=== PATIENT | female | born 1980 | race African-American/Black ===

== ENCOUNTER 2017-04-09 17:24 | Emergency (ER) | payer SELFPAY ==
[~2017-04-09] VITALS: Ht 172.7 cm; Wt 79.4 kg
[~2017-04-09 17:24] MED LIST: ALBU8.5H6; FERR325C
[2017-04-09 17:28] VITALS: BP 126/77
[2017-04-09] MEDS ORDERED: LIDOCAINE 1% / SOD BICARB 8.4% 20 ML VIAL. IJ ONE (18:15)
[2017-04-09] MEDS ORDERED: DIPHTH,PERTUSS(ACELL),TET TOX 0.5 ML DISP.SYRIN. VAX IM ONE (18:15)
--- NOTE | 2017-04-09 18:54 | PHYS DOC ---
Past Medical History Past Medical History: Anemia, Asthma, Fibromyalgia, Other Additional Past Medical Histor: DRUG ABUSE, HX OF PROSTITUTION Past Surgical History: No Surgical History Alcohol Use: None Drug Use: None, Other Social History Narrative: former Adult General Chief Complaint Chief Complaint: OTHER COMPLAINTS HPI HPI Patient is a 37 year old female who presents with a ring stuck in the lower lip. She states she was laughing hard when her lip ring got pulled by her teeth and stuck in her lower lip. Review of Systems Review of Systems Constitutional: Denies fever or chills [] Musculoskeletal: Denies back pain or joint pain [] Integument: ring in lower lip. Neurologic: Denies headache, focal weakness or sensory changes [] All other systems were reviewed and found to be within normal limits, except as documented in this note. Current Medications Current Medications Current Medications Medications (Trade) Dose Ordered Sig/Reshma Start Time Stop Time Status Last Admin Dose Admin Diphtheria/ Tetanus/Acell Pertussis (Boostrix) 0.5 ml ONCE ONCE 04/09/17 18:15 04/09/17 18:16 DC 04/09/17 18:40 0.5 ML Lidocaine/Sodium Bicarbonate (Buffered Lidocaine 1%) 20 ml 1X ONCE 04/09/17 18:15 04/09/17 18:16 DC 04/09/17 18:40 20 ML Allergies Allergies Allergies Coded Allergies Type Severity Reaction Last Updated Verified codeine Allergy Unknown 08/01/13 Yes Physical Exam Physical Exam Constitutional: Well developed, well nourished, no acute distress, non-toxic appearance. [] Skin: Warm, dry, lower lip with a ring stuck in the lip. Back: No tenderness, no CVA tenderness. [] Extremities: No tenderness, no cyanosis, no clubbing, ROM intact, no edema. [] Neurologic: Alert and oriented X 3, normal motor function, normal sensory function, no focal deficits noted. [] Psychologic: Affect normal, judgement normal, mood normal. [] Current Patient Data Vital Signs Vital Signs Date Time Temp Pulse Resp B/P (MAP) Pulse Ox O2 Delivery O2 Flow Rate FiO2 04/09/17 17:28 98.7 95 18 97 Room Air 98.7 EKG EKG [] Radiology/Procedures Radiology/Procedures Indication: ring in the lower lip Procedure: The area of the foreign body was lower lip. Local anesthesia over the foreign body site was 1% buffered lidocaine, the ring was pulled though the lip with forceps successfully. The patient tolerated the procedure well Complications:none Course & Med Decision Making Course & Med Decision Making Pertinent Labs and Imaging studies reviewed. (See chart for details) [] Dragon Disclaimer Dragon Disclaimer This electronic medical record was generated, in whole or in part, using a voice recognition dictation system. Departure Departure Impression: Primary Impression: Foreign body in lip Disposition: HOME, SELF-CARE Condition: STABLE Referrals: UNKNOWN PCP NAME (PCP) follow up with your doctor in one week Patient Instructions: Foreign Body-Brief Additional Instructions: We removed a ring from the lower lip. The pierced area might close. If it closes you can re-repierce the lip after the area heals up. Keep the area clean and dry. Monitor the area for signs of infection including increased redness to the area, warmth to the area, yellow drainage from the area and return to the ED or see a doctor if they occur. Problem Qualifiers Primary Impression: Foreign body in lip Encounter type: initial encounter Qualified Codes: S00.551A - Superficial foreign body of lip, initial encounter GREGORY CHAVEZ INFORMATION TECH Apr 09, 2017 18:54
== END 2017-04-09 19:29 | disposition home or self-care (01) ==
LOC: ER 17:24
DX: S00.551A Superficial foreign body of lip, initial encounter (principal); J45.909 Unspecified asthma, uncomplicated; M79.7 Fibromyalgia; Z86.2 Personal history of diseases of the blood and blood-forming organs and certain disorders involving the immune mechanism; Z88.6 Allergy status to analgesic agent; X58.XXXA Exposure to other specified factors, initial encounter; Y93.89 Activity, other specified; Y92.89 Other specified places as the place of occurrence of the external cause; Y99.8 Other external cause status
CPT/HCPCS: 90471; 90715; 96372; 99284-25

== ENCOUNTER 2017-04-27 09:00 | Emergency (ER) | payer SELFPAY ==
[~2017-04-27] VITALS: Ht 172.7 cm; Wt 79.4 kg
[2017-04-27 09:13] VITALS: BP 123/71
[2017-04-27] MEDS ORDERED: ONDANSETRON ODT 4 MG TAB.RAPDIS. PO ONE (09:15)
[2017-04-27] MEDS ORDERED: CYCLOBENZAPRINE 10 MG TABLET. PO ONE (09:15)
[2017-04-27] MEDS ORDERED: ACETAMINOPHEN 500 MG TABLET PO ONE (09:15)
--- NOTE | 2017-04-27 09:18 | PHYS DOC ---
Past Medical History Past Medical History: Anemia, Asthma, Fibromyalgia, Other Additional Past Medical Histor: DRUG ABUSE, HX OF PROSTITUTION Past Surgical History: No Surgical History Alcohol Use: None Drug Use: None, Other Adult General Chief Complaint Chief Complaint: NAUSEA/VOMITING/DIARRHA HPI HPI Patient is a 37 year old female with history of asthma, anemia, fibromyalgia, who presents today complaining of nausea and vomiting that began yesterday. Patient denies any fever. Patient states other family members at home have similar symptoms. Patient denies any chance she is . Denies abdominal pain. Review of Systems Review of Systems Constitutional: Denies fever or chills [] Eyes: Denies change in visual acuity, redness, or eye pain [] HENT: Denies nasal congestion or sore throat [] Respiratory: Denies cough or shortness of breath [] Cardiovascular: No additional information not addressed in HPI [] GI: Denies abdominal pain, reports nausea and vomiting. Bloody stools or diarrhea [] : Denies dysuria or hematuria [] Musculoskeletal: Denies back pain or joint pain [] Integument: Denies rash or skin lesions [] Neurologic: Denies headache, focal weakness or sensory changes [] All other systems were reviewed and found to be within normal limits, except as documented in this note. Current Medications Current Medications Current Medications Medications (Trade) Dose Ordered Sig/Reshma Start Time Stop Time Status Last Admin Dose Admin Acetaminophen (Tylenol) 500 mg 1X ONCE 04/27/17 09:15 04/27/17 09:16 DC 04/27/17 09:27 500 MG Cyclobenzaprine HCl (Flexeril) 10 mg 1X ONCE 04/27/17 09:15 04/27/17 09:16 DC 04/27/17 09:27 10 MG Ondansetron HCl (Zofran Odt) 4 mg 1X ONCE 04/27/17 09:15 04/27/17 09:16 DC 04/27/17 09:27 4 MG Allergies Allergies Allergies Coded Allergies Type Severity Reaction Last Updated Verified codeine Allergy Unknown 08/01/13 Yes Physical Exam Physical Exam Constitutional: Well developed, well nourished, no acute distress, non-toxic appearance. [] HENT: Normocephalic, atraumatic, bilateral external ears normal, oropharynx moist, no oral exudates, nose normal. [] Eyes: PERRLA, EOMI, conjunctiva normal, no discharge. [] Neck: Normal range of motion, no tenderness, supple, no stridor. [] Cardiovascular:Heart rate regular rhythm, no murmur [] Lungs & Thorax: Bilateral breath sounds clear to auscultation [] Abdomen: Bowel sounds normal, soft, no tenderness, no masses, no pulsatile masses. [] Skin: Warm, dry, no erythema, no rash. [] Back: No tenderness, no CVA tenderness. [] Extremities: No tenderness, no cyanosis, no clubbing, ROM intact, no edema. [] Neurologic: Alert and oriented X 3, normal motor function, normal sensory function, no focal deficits noted. [] Psychologic: Affect normal, judgement normal, mood normal. [] Current Patient Data Vital Signs Vital Signs Date Time Temp Pulse Resp B/P (MAP) Pulse Ox O2 Delivery O2 Flow Rate FiO2 04/27/17 09:13 97.9 101 16 99 Room Air 97.9 Lab Values Laboratory Tests Test 04/27/17 09:08 04/27/17 09:10 Urine Collection Type Void Urine Color Yellow Urine Clarity Cloudy Urine pH 7.0 Urine Specific [place] >=1.030 Urine Protein Negative mg/dL (NEG-TRACE) Urine Glucose (UA) Negative mg/dL (NEG) Urine Ketones (Stick) Negative mg/dL (NEG) Urine Blood Negative (NEG) Urine Nitrite Negative (NEG) Urine Bilirubin Negative (NEG) Urine Urobilinogen Dipstick 1.0 mg/dL (0.2 mg/dL) Urine Leukocyte Esterase Moderate (NEG) Urine RBC Occ /HPF (0-2) Urine WBC 5-10 /HPF (0-4) Urine Squamous Epithelial Cells Mod /LPF Urine Bacteria Mod /HPF (0-FEW) POC Urine HCG, Qualitative Hcg negative (Negative) EKG EKG [] Radiology/Procedures Radiology/Procedures [] Course & Med Decision Making Course & Med Decision Making Pertinent Labs and Imaging studies reviewed. (See chart for details) This is a 37-year-old female patient presented to the ED today with symptoms consistent of viral illness including nausea and vomiting. Several family members at home have similar symptoms. Negative urine hCG. Patient was given Zofran, she is tolerating by mouth liquids. She states she is feeling better and would like to be discharged. Discharged with Zofran. Instructed to push fluids and maintain good hand hygiene. Follow-up with her own doctor in the next 7 days. Instructed to return to the ED at any point symptoms worsen. Patient refused to wait for her UA results. Ron Disclaimer Ron Disclaimer This electronic medical record was generated, in whole or in part, using a voice recognition dictation system. Departure Departure Impression: Primary Impression: Nausea and vomiting Disposition: HOME, SELF-CARE Condition: STABLE Referrals: UNKNOWN PCP NAME (PCP) follow up with your doctor in 1 week Patient Instructions: Nausea and Vomiting, [id number] Additional Instructions: You were seen with symptoms consistent of viral illness including nausea and vomiting. Take Zofran prescribed as needed for nausea or vomiting. Push fluids. Maintain good hand hygiene. Follow-up with your own doctor in the next 1 week. Come back to the ED if symptoms worsen. Scripts Ondansetron (ZOFRAN ODT) 4 Mg Tab.rapdis 1 TAB SL Q8HRS, #15 TAB Prov: GREGORY CHAVEZ APRN 04/27/17 Problem Qualifiers Primary Impression: Nausea and vomiting Vomiting type: unspecified Vomiting Intractability: non-intractable Qualified Codes: R11.2 - Nausea with vomiting, unspecified GREGORY CHAVEZ APRN Apr 27, 2017 09:18
[2017-04-27 09:36] LABS: BILIRUBIN,URINE NEGATIVE (NEG); GLUCOSE,URINE NEGATIVE (NEG); NITRITE,URINE NEGATIVE (NEG); PROTEIN,URINE NEGATIVE (NEG-TRACE)
[2017-04-27 09:51] LABS: BACTERIA,URINE MOD /HPF (0-FEW); RBC,URINE OCC /HPF (0-2); SQUAMOUS EPITHELIAL CELL,UR MOD /LPF
[2017-04-27] MEDS ORDERED: ONDA4TAB10 SL (09:55)
== END 2017-04-27 10:10 | disposition home or self-care (01) ==
LOC: ER 09:00
DX: R11.2 Nausea with vomiting, unspecified (principal); J45.909 Unspecified asthma, uncomplicated; M79.7 Fibromyalgia; Z88.5 Allergy status to narcotic agent
CPT/HCPCS: 81001; 81025; 99284; Q0162

== ENCOUNTER 2017-07-19 14:55 | Emergency (ER) | payer SELFPAY | END 2017-07-19 16:04 | disposition home or self-care (01) | LOC: ER 16:04 | DX: H69.83 Other specified disorders of Eustachian tube, bilateral (principal); J45.909 Unspecified asthma, uncomplicated; Z88.5 Allergy status to narcotic agent | CPT/HCPCS: 99281 ==

== ENCOUNTER 2017-11-05 00:54 | Emergency (ER) | payer SELFPAY ==
[2017-11-05] MEDS ORDERED: BACITRACIN/POLYMYXIN B TOPICAL OINT 15GM TUBE. TP (01:30)
[2017-11-05] MEDS: IBUPROFEN 800 MG TABLET. PO (01:35)
[2017-11-05] MEDS: HYDROcodone/APAP 5/325MG 1 TAB TABLET PO (01:36)
[2017-11-05] MEDS: DIPHTH,PERTUSS(ACELL),TET TOX 0.5 ML DISP.SYRIN. VAX IM (01:37)
[2017-11-05] MEDS ORDERED: NEOMY/BACITR/POLYMYXIN OINT PACKET. TP (01:45)
[2017-11-05] MEDS: NEOMY/BACITR/POLYMYXIN OINT PACKET. TP (01:47)
== END 2017-11-05 01:55 | disposition home or self-care (01) ==
LOC: ER 00:54
DX: T23.221A Burn of second degree of single right finger (nail) except thumb, initial encounter (principal); T23.151A Burn of first degree of right palm, initial encounter; J45.909 Unspecified asthma, uncomplicated; Z88.5 Allergy status to narcotic agent; Y92.89 Other specified places as the place of occurrence of the external cause
CPT/HCPCS: 90471; 90715; 99284

== ENCOUNTER 2019-07-16 13:17 | Emergency (ER) | payer OTHER ==
[~2019-07-16] VITALS: Ht 172.7 cm; Wt 63.0 kg
[2019-07-16 13:17] VITALS: BP 97/65
[~2019-07-16 13:17] MED LIST changes: +HYDR-3164 PO; +IBUP-1060 PO; +ONDA4TAB10 SL
[2019-07-16 14:13] LABS: BASO % 0 % (0-3); CREATININE 0.9 mg/dL (0.6-1.0); EOS # 0.1 x10^3/uL (0.0-0.7); EOS % 2 % (0-3); GFR 84.3; HEMATOCRIT 43.7 % (36.0-47.0); HEMOGLOBIN 14.7 g/dL (12.0-15.5); LYMPH # 2.2 x10^3/uL (1.0-4.8); LYMPH % 33 % (24-48); MEAN CORPUSCULAR HEMOGLOBIN 31 pg (25-35); MEAN CORPUSCULAR HGB CONC 34 g/dL (31-37); MEAN CORPUSCULAR VOLUME 94 fL (79-100); MONO # 0.5 x10^3/uL (0.0-1.1); MONO % 7 % (0-9); NEUT # 3.8 x10^3/uL (1.8-7.7); NEUT % 57 % (31-73); PLATELET COUNT 245 x10^3/uL (140-400); POTASSIUM 3.6 mmol/L (3.5-5.1); RED BLOOD COUNT 4.67 x10^6/uL (3.50-5.40); RED CELL DISTRIBUTION WIDTH 12.9 % (11.5-14.5); WHITE BLOOD COUNT 6.7 x10^3/uL (4.0-11.0)
[2019-07-16 14:20] LABS: ALBUMIN 3.9 g/dL (3.4-5.0); ALBUMIN/GLOBULIN RATIO 1.5 (1.0-1.7); TOTAL BILIRUBIN 1.1 mg/dL (0.2-1.0); TOTAL PROTEIN 6.5 g/dL (6.4-8.2)
[2019-07-16 14:21] LABS: BILIRUBIN,URINE NEGATIVE (NEG); CLARITY,URINE CLEAR; COLOR,URINE YELLOW; NITRITE,URINE NEGATIVE (NEG); PROTEIN,URINE NEGATIVE (NEG-TRACE)
[2019-07-16 14:27] LABS: BARBITURATES NEG (NEG); BENZODIAZEPINES NEG (NEG); CANNABINOIDS POS (NEG); COCAINE NEG (NEG); HYALINE CASTS, URINE OCCASIONAL /HPF; METHADONE NEG (NEG); OPIATES NEG (NEG); PHENCYCLIDINE POS (NEG); SQUAMOUS EPITHELIAL CELL,UR MANY /LPF
[2019-07-16 14:28] LABS: BACTERIA,URINE FEW /HPF (0-FEW)
[2019-07-16 14:30] LABS: RBC,URINE 20-40 /HPF (0-2); YEAST,URINE PRESENT /HPF
[2019-07-16 14:34] LABS: AMPHETAMINE/METHAMPHETAMINE NEG (NEG)
--- NOTE | 2019-07-16 14:49 | PHYS DOC ---
Past Medical History Past Medical History: Asthma, Fibromyalgia Additional Past Medical Histor: DRUG ABUSE Past Surgical History: No Surgical History Smoking Status: Current Every Day Smoker Alcohol Use: None Drug Use: None, Other Social History Narrative: PT STATES SHE USES MARIJUANA AND PCP EVERY OTHER DAY Adult General Chief Complaint Chief Complaint: PELVIC PAIN HPI HPI Patient is a 39-year-old female who presents with a variety of complaints inc luding pain all over lower abdominal pain and generalized weakness. She denies any fever chills or sweats. She admits to dysuria. She does admit to having a thick white vaginal discharge but denies any dyspareunia. She denies any vaginal bleeding. She also states that she uses marijuana and PCP and would like help detoxing from these substances.[] Review of Systems Review of Systems Constitutional: Denies fever or chills [] Eyes: Denies change in visual acuity, redness, or eye pain [] HENT: Denies nasal congestion or sore throat [] Respiratory: Denies cough or shortness of breath [] Cardiovascular: No additional information not addressed in HPI [] GI: Denies abdominal pain, nausea, vomiting, bloody stools or diarrhea [] : Per history of present illness[] Musculoskeletal: Denies back pain or joint pain [] Integument: Denies rash or skin lesions [] Neurologic: Denies headache, focal weakness or sensory changes [] Endocrine: Denies polyuria or polydipsia [] All other systems were reviewed and found to be within normal limits, except as documented in this note. Current Medications Current Medications Current Medications Medications (Trade) Dose Ordered Sig/[facility] Start Time Stop Time Status Last Admin Dose Admin Levofloxacin (Levaquin) 500 mg 1X ONCE 07/16/19 15:00 07/16/19 15:01 MT Allergies Allergies Allergies Coded Allergies Type Severity Reaction Last Updated Verified codeine Allergy Unknown 08/01/13 Yes Physical Exam Physical Exam Constitutional: Well developed, well nourished, no acute distress, non-toxic ap pearance. [] HENT: Normocephalic, atraumatic, bilateral external ears normal, oropharynx moist, no oral exudates, nose normal. [] Eyes: PERRLA, EOMI, conjunctiva normal, no discharge. [] Neck: Normal range of motion, no tenderness, supple, no stridor. [] Cardiovascular:Heart rate regular rhythm, no murmur [] Lungs & Thorax: Bilateral breath sounds clear to auscultation [] Abdomen: Bowel sounds normal, soft, no tenderness, no masses, no pulsatile masses. [] Skin: Warm, dry, no erythema, no rash. [] Back: No tenderness, no CVA tenderness. [] Extremities: No tenderness, no cyanosis, no clubbing, ROM intact, no edema. [] Neurologic: Alert and oriented X 3, normal motor function, normal sensory function, no focal deficits noted. [] Psychologic: Depressed affect[] Current Patient Data Vital Signs Vital Signs Date Time Temp Pulse Resp B/P (MAP) Pulse Ox O2 Delivery O2 Flow Rate FiO2 07/16/19 13:17 99.7 79 16 97/65 (76) 97 Room Air 99.7 Lab Values Laboratory Tests Test 07/16/19 13:51 07/16/19 14:00 White Blood Count 6.7 x10^3/uL (4.0-11.0) Red Blood Count 4.67 x10^6/uL (3.50-5.40) Hemoglobin 14.7 g/dL (12.0-15.5) Hematocrit 43.7 % (36.0-47.0) Mean Corpuscular Volume 94 fL (79-100) Mean Corpuscular Hemoglobin 31 pg (25-35) Mean Corpuscular Hemoglobin Concent 34 g/dL (31-37) Red Cell Distribution Width 12.9 % (11.5-14.5) Platelet Count 245 x10^3/uL (140-400) Neutrophils (%) (Auto) 57 % (31-73) Lymphocytes (%) (Auto) 33 % (24-48) Monocytes (%) (Auto) 7 % (0-9) Eosinophils (%) (Auto) 2 % (0-3) Basophils (%) (Auto) 0 % (0-3) Neutrophils # (Auto) 3.8 x10^3/uL (1.8-7.7) Lymphocytes # (Auto) 2.2 x10^3/uL (1.0-4.8) Monocytes # (Auto) 0.5 x10^3/uL (0.0-1.1) Eosinophils # (Auto) 0.1 x10^3/uL (0.0-0.7) Basophils # (Auto) 0.0 x10^3/uL (0.0-0.2) Sodium Level 142 mmol/L (136-145) Potassium Level 3.6 mmol/L (3.5-5.1) Chloride Level 107 mmol/L (98-107) Carbon Dioxide Level 31 mmol/L (21-32) Anion Gap 4 (6-14) L Blood Urea Nitrogen 10 mg/dL (7-20) Creatinine 0.9 mg/dL (0.6-1.0) Estimated GFR (Cockcroft-Gault) 84.3 BUN/Creatinine Ratio 11 (6-20) Glucose Level 113 mg/dL (70-99) H Calcium Level 9.0 mg/dL (8.5-10.1) Total Bilirubin 1.1 mg/dL (0.2-1.0) H Aspartate Amino Transferase (AST) 13 U/L (15-37) L Alanine Aminotransferase (ALT) 20 U/L (14-59) Alkaline Phosphatase 44 U/L (46-116) L Total Protein 6.5 g/dL (6.4-8.2) Albumin 3.9 g/dL (3.4-5.0) Albumin/Globulin Ratio 1.5 (1.0-1.7) Ethyl Alcohol Level < 10 mg/dL (0-10) Urine Collection Type Unknown Urine Color Yellow Urine Clarity Clear Urine pH 8.0 (<5.0-8.0) Urine Specific [place] 1.015 (1.000-1.030) Urine Protein Negative mg/dL (NEG-TRACE) Urine Glucose (UA) Negative mg/dL (NEG) Urine Ketones (Stick) Negative mg/dL (NEG) Urine Blood Large (NEG) Urine Nitrite Negative (NEG) Urine Bilirubin Negative (NEG) Urine Urobilinogen Dipstick 2.0 mg/dL (0.2 mg/dL) Urine Leukocyte Esterase Small (NEG) Urine RBC 20-40 /HPF (0-2) Urine WBC 11-20 /HPF (0-4) Urine Squamous Epithelial Cells Many /LPF Urine Bacteria Few /HPF (0-FEW) Urine Hyaline Casts Occasional /HPF Urine Mucus Mod /LPF Urine Yeast Present /HPF Urine Opiates Screen Neg (NEG) Urine Methadone Screen Neg (NEG) Urine Barbiturates Neg (NEG) Urine Phencyclidine Screen Pos (NEG) Urine Amphetamine/Methamphetamine Neg (NEG) Urine Benzodiazepines Screen Neg (NEG) Urine Cocaine Screen Neg (NEG) Urine Cannabinoids Screen Pos (NEG) Urine Ethyl Alcohol Neg (NEG) Laboratory Tests 07/16/19 13:51 Laboratory Tests 07/16/19 13:51 EKG EKG [] Radiology/Procedures Radiology/Procedures [] Course & Med Decision Making Course & Med Decision Making Pertinent Labs and Imaging studies reviewed. (See chart for details) [ED course: Evaluation reveals a healthy-appearing 39-year-old female who admits to PCP and marijuana. She is been medically screened and subsequently cleared for the adult detox unit. We'll have psychiatric assessment team come and check her out.] Dragon Disclaimer Dragon Disclaimer This electronic medical record was generated, in whole or in part, using a voice recognition dictation system. Departure Departure Impression: Primary Impression: Urinary tract infection Additional Impression: Polysubstance abuse Disposition: HOME, SELF-CARE Condition: STABLE Referrals: UNKNOWN PCP NAME (PCP) Patient Instructions: Substance Abuse-Brief, Urinary Tract Infection Scripts Levofloxacin (LEVAQUIN) 500 Mg Tablet 1 TAB PO DAILY for urinary tract infection, #4 TAB start tomorrow morning Prov: DEVONTE SORIANO DO 07/16/19 Problem Qualifiers Primary Impression: Urinary tract infection Urinary tract infection type: acute cystitis Hematuria presence: without hematuria Qualified Codes: N30.00 - Acute cystitis without hematuria DEVONTE SORIANO DO Jul 16, 2019 14:49
[2019-07-16] MEDS ORDERED: LEVO500T59 PO (15:05)
== END 2019-07-16 15:22 | disposition home or self-care (01) ==
LOC: ER 13:17
DX: N30.00 Acute cystitis without hematuria (principal); F19.10 Other psychoactive substance abuse, uncomplicated; J45.909 Unspecified asthma, uncomplicated; F17.200 Nicotine dependence, unspecified, uncomplicated; Z88.5 Allergy status to narcotic agent
CPT/HCPCS: 80053; 80307; 81001; 81025; 85025; 87086; 87491; 87591; 99283; G0480

== ENCOUNTER 2019-08-06 04:03 | Emergency (ER) | payer OTHER ==
[~2019-08-06] VITALS: Ht 174 cm; Wt 72.0 kg
[~2019-08-06 04:03] MED LIST changes: +LEVO500T59 PO
[2019-08-06 04:23] VITALS: BP 139/87
--- NOTE | 2019-08-06 04:38 | PHYS DOC ---
Past Medical History Past Medical History: Asthma, Depression, Pneumonia Additional Past Medical Histor: DRUG ABUSE Past Surgical History: No Surgical History Smoking Status: Current Every Day Smoker Additional Information: 5-6 CIGARETTES/DAY Alcohol Use: Heavy Drug Use: None, Other Adult General Chief Complaint Chief Complaint: LOWER BACK PAIN OR INJURY [facility] HPI Patient is a 39 year old female with history of asthma, depression, pneumonia, drug abuse, chronic back pain who presents via EMS with complaint of back pain. Patient states she has had back pain forever but tonight her back pain is getting worse without any injury. Patient states the pain is a constant pain and rated her pain is severe pain without focal neuro deficit, fever and chills, nausea and vomiting, urinary symptoms, abdominal pain. Patient is a poor historian and refused to answer to the question or stated "I don't know" to the most of the question. Patient admitted to his PCP and marijuana and denies using methamphetamine. Review of Systems Review of Systems Constitutional: Denies fever or chills [] Eyes: Denies change in visual acuity, redness, or eye pain [] HENT: Denies nasal congestion or sore throat [] Respiratory: Denies cough or shortness of breath [] Cardiovascular: No additional information not addressed in HPI [] GI: Denies abdominal pain, nausea, vomiting, bloody stools or diarrhea [] : Denies dysuria or hematuria [] Musculoskeletal: Reports back pain Integument: Denies rash or skin lesions [] Neurologic: Denies headache, focal weakness or sensory changes [] Endocrine: Denies polyuria or polydipsia [] All other systems were reviewed and found to be within normal limits, except as documented in this note. Current Medications Current Medications Current Medications Medications (Trade) Dose Ordered Sig/Reshma Start Time Stop Time Status Last Admin Dose Admin Cyclobenzaprine HCl (Flexeril) 10 mg 1X ONCE 08/06/19 04:45 08/06/19 04:47 DC Naproxen (Naprosyn) 500 mg 1X ONCE 08/06/19 04:45 08/06/19 04:47 DC Allergies Allergies Allergies Coded Allergies Type Severity Reaction Last Updated Verified codeine Allergy Unknown 08/01/13 Yes Physical Exam Physical Exam Constitutional: Well nourished, mild distress, non-toxic appearance. [] HENT: Normocephalic, atraumatic. Eyes: PERRLA, EOMI, conjunctiva normal, no discharge. [] Neck: Normal range of motion, no tenderness, supple, no stridor. [] Cardiovascular:Heart rate regular rhythm, no murmur [] Lungs & Thorax: Bilateral breath sounds clear to auscultation [] Abdomen: Bowel sounds normal, soft, no tenderness, no masses, no pulsatile masses. [] Skin: Warm, dry, no erythema, no rash. [] Back: No midline tenderness, normal range of motion, no CVA tenderness. [] Extremities: No tenderness, no cyanosis, no clubbing, ROM intact, no edema. [] Neurologic: Alert and oriented X 3, no focal deficits noted. [] Psychologic: Affect anxious,mood normal. 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 Patient had unremarkable physical exam. Patient asking for hydrocodone for her pain and refused to take Flexeril and Naprosyn and refused to take discharge prescription. Patient had history of PCP and marijuana abuse and looked under influence of drug. Dragon Disclaimer Dragon Disclaimer This electronic medical record was generated, in whole or in part, using a voice recognition dictation system. Departure Departure Impression: Primary Impression: Acute exacerbation of chronic low back pain Additional Impression: Substance abuse Disposition: 01 HOME, SELF-CARE Condition: STABLE Referrals: UNKNOWN PCP NAME (PCP) Patient Instructions: Chronic Back Pain Additional Instructions: Apply ice on your back Follow-up with your primary care physician in 3-5 days Return to ER if not getting better Thank you for visiting [facility]. We appreciate you trusting us with your care. If any additional problems come up don't hesitate to return to visit us. Please follow up with your primary care provider so they can plan additional care if needed and know about the problem that you had. If symptoms worsen come back to the Emergency Department. Any concerning symptoms that start such as chest pain, shortness of air, weakness or numbness on one side of the body, running high fevers or any other concerning symptoms return to the ER. Scripts Naproxen (NAPROSYN) 500 Mg Tablet 1 TAB PO BID for pain, #14 TAB Prov: MARCUS BENITEZ MD 08/06/19 Cyclobenzaprine Hcl (CYCLOBENZAPRINE HCL) 10 Mg Tablet 1 TAB PO TID, #21 TAB Prov: MARCUS BENITEZ MD 08/06/19 Problem Qualifiers MARCUS BENITEZ MD Aug 06, 2019 04:37
[2019-08-06] MEDS ORDERED: CYCL10TA2 PO (04:45)
[2019-08-06] MEDS ORDERED: NAPROXEN 500 MG TABLET PO ONE (04:45)
[2019-08-06] MEDS ORDERED: CYCLOBENZAPRINE 10 MG TABLET. PO ONE (04:45)
[2019-08-06] MEDS ORDERED: NAPR-683 PO (04:45)
== END 2019-08-06 05:01 | disposition home or self-care (01) ==
LOC: ER 04:03
DX: G89.29 Other chronic pain (principal); M54.5 Low back pain; F16.10 Hallucinogen abuse, uncomplicated; F12.10 Cannabis abuse, uncomplicated; J45.909 Unspecified asthma, uncomplicated; F17.210 Nicotine dependence, cigarettes, uncomplicated; Z88.5 Allergy status to narcotic agent
CPT/HCPCS: 99283

== ENCOUNTER 2020-05-21 03:56 | Emergency (ER) | payer OTHER ==
[~2020-05-21] VITALS: Ht 180.3 cm; Wt 61.4 kg
[~2020-05-21 03:56] MED LIST changes: +CYCL10TA2 PO; +NAPR-683 PO
[2020-05-21 04:10] VITALS: BP 166/90
--- NOTE | 2020-05-21 04:41 | PHYS DOC ---
Past Medical History Past Medical History: Asthma, Depression, Pneumonia Additional Past Medical Histor: DRUG ABUSE Past Surgical History: No Surgical History Smoking Status: Current Every Day Smoker Alcohol Use: Heavy Drug Use: None, Other General Adult EDM: Chief Complaint: BACK PAIN OR INJURY HPI: HPI: Patient is a 40 year old female who presents with diffuse body pain. She has a history of fibromyalgia and cannot locate where her pain is the worst. She denies any head or neck trauma. She appears to be under the influence of drugs/alcohol, she was here in August 2019 for similar complaints and tested positive for PCP and marijuana at that time. She denies substance use at this time but refused to give a urine sample. She has no other complaints at this time. Review of Systems: Review of Systems: Constitutional: Denies fever or chills Eyes: Denies redness or eye pain HENT: Denies nasal congestion or sore throat Respiratory: Denies cough or shortness of breath Cardiovascular: Denies chest pain or palpitations GI: Denies abdominal pain, nausea, or vomiting : Denies dysuria or hematuria Musculoskeletal: States she has full body pain from chronic fibromyalgia Integument: Denies rash or skin lesions Neurologic: Denies headache, focal weakness or sensory changes Complete systems were reviewed and found to be within normal limits, except as documented in this note. Allergies: Allergies: Allergies Coded Allergies Type Severity Reaction Last Updated Verified codeine Allergy Unknown 08/01/13 Yes Physical Exam: PE: Constitutional: Well developed, well nourished, no acute distress, non-toxic appearance HENT: Normocephalic, atraumatic, CN 2-12 grossly intact bilaterally Eyes: PERRL, EOMI, conjunctiva normal, no discharge Neck: Normal range of motion, no tenderness, supple Lungs & Thorax: No respiratory distress, equal chest rise and fall Abdomen: Soft, no tenderness Skin: Warm, dry, no erythema, no rash Back: No tenderness, no CVA tenderness Extremities: No tenderness, ROM intact, no edema Neurologic: Alert and oriented X 3, normal motor function, normal sensory function, no focal deficits noted Psychologic:Appears intoxicated. Is inconsistent with responding appropriately. Gives different reports to different individuals. Current Patient Data: Vital Signs: Vital Signs Date Time Temp Pulse Resp B/P (MAP) Pulse Ox O2 Delivery O2 Flow Rate FiO2 05/21/20 04:10 97.8 99 14 166/90 (115) 95 Room Air 97.8 EKG: EKG: [] Radiology/Procedures: Radiology/Procedures: [] Course & Med Decision Making: Course & Med Decision Making Patient is a 40 yo female who presents today with diffuse body pain. She denies any focal pain or deficits. She answers some questions appropriately but does not answer others correctly. She was agreeable to an injection of ketoralac and to follow up with her PCP outpt. All questions were answered and she had no other concerns at this time. Patient stable for discharge with outpatient follow-up with PCP. Discussed findings and plan with patient, who acknowledges understanding and agreement. Ron Disclaimer: Ron Disclaimer: This electronic medical record was generated, in whole or in part, using a voice recognition dictation system. Departure Departure Impression: Primary Impression: Chronic pain Qualified Codes: G89.29 - Other chronic pain Disposition: 01 DC HOME SELF CARE/HOMELESS Condition: STABLE Referrals: UNKNOWN PCP NAME (PCP) Patient Instructions: Chronic Back Pain, Chronic Pain Management Additional Instructions: Please contact your doctor regarding your chronic pain. You may take over the counter Tylenol and/or Ibuprofen for pain. You may ICE areas of discomfort 20 min on the leave off next 20 mins. ULYSSES SKINNER DO May 21, 2020 04:41
[2020-05-21] MEDS ORDERED: KETOROLAC 30 MG/ML VIAL. IM ONE (05:00)
== END 2020-05-21 05:06 | disposition home or self-care (01) ==
LOC: ER 03:56
DX: G89.29 Other chronic pain (principal); M79.10 Myalgia, unspecified site; J45.909 Unspecified asthma, uncomplicated; F17.200 Nicotine dependence, unspecified, uncomplicated; Z88.5 Allergy status to narcotic agent
CPT/HCPCS: 96372; 99283; J1885

== ENCOUNTER 2020-06-04 06:17 | Emergency (ER) | payer OTHER ==
[~2020-06-04] VITALS: Ht 172.7 cm; Wt 59.0 kg
[2020-06-04 06:20] VITALS: BP 113/53
--- NOTE | 2020-06-04 07:06 | PHYS DOC ---
Past Medical History Past Medical History: Asthma, Depression, Pneumonia Additional Past Medical Histor: DRUG ABUSE Past Surgical History: No Surgical History Smoking Status: Current Every Day Smoker Alcohol Use: Heavy Drug Use: None, Other Social History Narrative: PCP General Adult EDM: Chief Complaint: BACK PAIN OR INJURY HPI: HPI: 40 yo homeless ("I'm transitioning") F PMH anxiety/depression well known to this ed, presents with c/o right sided low/lumbar nonradiating back pain x 2 days and leg cramps. Has another hospital band on states she was at and diagnosed with UTI. Has not refilled her prescription. Patient very evasive with questioning - voluntarily not providing details of prior visit. Has no routine pmd. Denies any drug use. States "I can't pee right now." Normal BM yesterday, no n/v/fever or vaginal bleeding/abnormal discharge. EMR reviewed-drug screen positive for pcp and thc. Review of Systems: Review of Systems: Constitutional: Denies fever or chills. [] Eyes: Denies change in visual acuity. [] HENT: Denies nasal congestion or sore throat. [] Respiratory: Denies cough or shortness of breath. [] Cardiovascular: Denies chest pain or edema. [] GI: Denies abdominal pain, nausea, vomiting, bloody stools or diarrhea. [] : Denies dysuria or hematuria Musculoskeletal: Denies CVA tenderness or joint pain Integument: Denies rash or diaphoresis Neurologic: Denies headache, neck stiffness, focal weakness or sensory changes. [] Endocrine: Denies polyuria or polydipsia. [] Lymphatic: Denies swollen glands. [] Psychiatric: Denies depression or anxiety. [] Heart Score: Risk Factors: Risk Factors: DM, Current or recent (<one month) smoker, HTN, HLP, family hi story of CAD, obesity. Risk Scores: Score 0 - 3: 2.5% MACE over next 6 weeks - Discharge Home Score 4 - 6: 20.3% MACE over next 6 weeks - Admit for Clinical Observation Score 7 - 10: 72.7% MACE over next 6 weeks - Early Invasive Strategies Allergies: Allergies: Allergies Coded Allergies Type Severity Reaction Last Updated Verified codeine Allergy Unknown 08/01/13 Yes Physical Exam: PE: Constitutional: no acute distress, non-toxic/upkept appearance (dirty white socks/clothing), pain scale is not consistent with her exam - steady gait, requesting room light off so she can sleep HENT: Normocephalic, atraumatic, Eyes: EOMI, conjunctiva normal, no discharge. Neck: Normal range of motion, supple, Cardiovascular: S1/2 present, regular rhythm Lungs & Thorax: Speaking in full sentences, bilateral equal chest rise, no tachypnea or increased work of breathing Abdomen: soft, no tenderness, Skin: Warm, dry, no erythema, no rash. [] Back: No midline tenderness, no CVA tenderness, reports right lateral L1-5 pain, no ttp Extremities: No tenderness, no cyanosis, no edema Neurologic: Alert and oriented X 3, normal motor function, normal sensory f unction, no focal deficits noted. [] Psychologic: Affect normal, judgement normal, mood normal-calm, does not appear to be intoxicated, has [facility] Current Patient Data: Vital Signs: Vital Signs Date Time Temp Pulse Resp B/P (MAP) Pulse Ox O2 Delivery O2 Flow Rate FiO2 06/04/20 06:20 98.7 76 18 113/53 (73) 95 Room Air 98.7 EKG: EKG: [] Radiology/Procedures: Radiology/Procedures: [] Course & Med Decision Making: Course & Med Decision Making Pertinent Labs and Imaging studies reviewed. (See chart for details) Concern for right low back pain and leg cramps, non compliant with abx/ku instructions - has not filled her rx. Pt unable to provide urine sample. HD stable-no signs of sepsis, in no distress. Will tx w/apap and fosfomycin. Recommend otc analgesia. When I informed pt of my recommendations, tx and dc, she insists we wait on a u/a. I told her she could followup with her pmd for repeat u/a in 10 days. Well known by security to be a hug[facility] mar at [facility], has required police to remove from ed in the past. Will discharge home with strict ED return precautions were given for fever, n/v, flu-like sxs or dehydration. Encouraged urgent outpatient follow-up with PMD. Life-threatening processes were considered but are low suspicion at this time, given history, physical exam and ED workup. Pt was educated on all prescription medications and adverse effects. All patient's questions were answered and pt was stable at time of discharge. Life/limb-threatening differential includes but is not limited to, aortic dissection/aneurysm, cauda equina syndrome, transverse myelitis, spinal cord/epidural compression syndromes, discitis, spinal stenosis, epidural abscess or hematoma, osteomyelitis, disc herniation, surgical abdomen, stable or unstable fracture, renal/ureteral colic, sepsis, meningitis, musculoskeletal injury, traumatic injury, intraabdominal/retroperitoneal or pelvic bleeding. I spoken with the patient and her caregivers. I explained the patient's condition, diagnoses and treatment plan based on the information available to me at this time. I have answered the patient and her caregiver's questions and addressed any concerns. The patient and her caregivers have a good understanding of patient's diagnosis, condition and treatment plan as can be expected at this point. Vital signs have been stable. Patient's condition is stable and appropriate for discharge from the emergency department. Patient will pursue further outpatient evaluation with primary care physician or other designated or consulting physician as outlined in the discharge instructions. The patient and/or caregivers are agreeable to this plan of care and follow-up instructions have been explained in detail. The patient and/or caregivers have received these instructions in written form and have expressed an understanding of the discharge instructions. The patient and/or caregivers are aware that any significant change of condition or worsening of symptoms should prompt immediate return to this or the closest emergency department or call to 4. Ron Disclaimer: Ron Disclaimer: This electronic medical record was generated, in whole or in part, using a voice recognition dictation system. Departure Departure Impression: Primary Impression: Low back pain Additional Impression: Leg cramps Disposition: 01 DC HOME SELF CARE/HOMELESS Condition: STABLE Referrals: UNKNOWN PCP NAME (PCP) FOLLOW UP WITH FAMILY MEDICINE: Family Medicine Address: [address] [place] [address], [facility] [address] [place] [address] Patient Instructions: Back Pain, Adult, Leg Cramps, Urinary Tract Infection Additional Instructions: EMERGENCY DEPARTMENT GENERAL DISCHARGE INSTRUCTIONS Thank you for coming to [facility] Emergency Department (ED) today and trusting us with you care. We trust that you had a positive experience in our Emergency Department. If you wish to speak to the department management, you may call the Director at [phone]. YOUR FOLLOW UP INSTRUCTIONS ARE FOLLOWS: 1. Do you have a private Doctor? If you do not have a private doctor, please ask for a resource list of physicians or clinics that may be able to assist you with follow up care. 2. The Emergency Physicain has interpreted your x-rays. The X-Ray specialist will also review them. If there is a change in the findings, you will be notified in 48 hours when at all possible. 3. A lab test or culture has been done, your results will be reviewed and you will be notified if you need a change in treatment. ADDITIONAL INSTRUCTIONS AND INFORMATION: 1. Your care today has been supervised by a physician who is specially trained in emergency care. Many problems require more than one evaluation for a complete diagnosis and treatment. We recommend that you schedule your follow up appointment as recommended to ensure complete treatment of you illness or injury. If you are unable to obtain follow up care and continue to have a problem, or if your condition worsens, we recommend that you return to the ED. 2. We are not able to safely determine your condition over the phone nor are we able to give sound medical advice over the phone. For these safety reasons, if you call for medical advice we will ask you to come to the ED for further evaluation. 3. If you have any questions regarding these discharge instructions please call the ED at [phone]. SAFETY INFORMATION: In the interest of safety, wellness, and injury prevention; we encourage you to wear your sealbelt, if you smoke; quite smoking, and we encourage family to use a protective helmet for bicycling and other sporting events that present an increased risk for head injury. IF YOUR SYMPTOMS WORSEN OR NEW SYMPTOMS DEVELOP, OR YOU HAVE CONCERNS ABOUT YOUR CONDITION; OR IF YOUR CONDITION WORSENS WHILE YOU ARE WAITING FOR YOUR FOLLOW UP APPOINTM ENT; EITHER CONTACT YOUR PRIMARY CARE DOCTOR, THE PHYSICIAN WHOSE NAME AND NUMBER YOU WERE GIVEN, OR RETURN TO THE ED IMMEDIATELY. ERIC CALLAHAN DO Jun 04, 2020 07:06
[2020-06-04] MEDS ORDERED: FOSFOMYCIN TROMETHAMINE 3 GM PACKET PO ONE (07:30)
[2020-06-04] MEDS ORDERED: ACETAMINOPHEN 325 MG TABLET. PO ONE (07:30)
== END 2020-06-04 07:18 | disposition home or self-care (01) ==
LOC: ER 06:17
DX: M54.5 Low back pain (principal); R25.2 Cramp and spasm; J45.909 Unspecified asthma, uncomplicated; F32.9 Major depressive disorder, single episode, unspecified; F17.200 Nicotine dependence, unspecified, uncomplicated; F10.10 Alcohol abuse, uncomplicated; Z88.5 Allergy status to narcotic agent
CPT/HCPCS: 99283

== ENCOUNTER 2020-07-19 02:43 | Emergency (ER) | payer OTHER ==
[~2020-07-19] VITALS: Ht 172.7 cm; Wt 54.5 kg
[2020-07-19 02:44] VITALS: BP 105/71
--- NOTE | 2020-07-19 03:09 | PHYS DOC ---
Past Medical History Past Medical History: Asthma, Depression, Pneumonia Additional Past Medical Histor: DRUG ABUSE Past Surgical History: No Surgical History Smoking Status: Current Every Day Smoker Alcohol Use: Heavy Drug Use: None, Other General Adult EDM: Chief Complaint: BACK PAIN OR INJURY HPI: HPI: Patient is a 40 year old female presents with a chief complaint of lower back pain and bilateral upper leg pain. Patient states pain is been ongoing for the last few hours. Patient tells me she has chronic lower back and bilateral upper leg pain. Patient states usually takes Percocet for her pain but has not taken anything for pain today. She denies any injuries. Patient arrived via EMS. She ambulated into the ER. No other complaints. Patient appears in no acute distress. I suspect patient is homeless--- Patient wearing 3 jackets and wrapped in a blanket. Review of Systems: Review of Systems: Constitutional: Denies fever or chills. [] Eyes: Denies change in visual acuity. [] HENT: Denies nasal congestion or sore throat. [] Respiratory: Denies cough or shortness of breath. [] Cardiovascular: Denies chest pain or edema. [] GI: Denies abdominal pain, nausea, vomiting, bloody stools or diarrhea. [] : Denies dysuria. [] Musculoskeletal: Positive back pain positive extremity pain Integument: Denies rash. [] Neurologic: Denies headache, focal weakness or sensory changes. [] Endocrine: Denies polyuria or polydipsia. [] Lymphatic: Denies swollen glands. [] Psychiatric: Denies depression or anxiety. [] Heart Score: C/O Chest Pain: No Risk Factors: Risk Factors: DM, Current or recent (<one month) smoker, HTN, HLP, family history of CAD, obesity. Risk Scores: Score 0 - 3: 2.5% MACE over next 6 weeks - Discharge Home Score 4 - 6: 20.3% MACE over next 6 weeks - Admit for Clinical Observation Score 7 - 10: 72.7% MACE over next 6 weeks - Early Invasive Strategies Current Medications: Current Medications Medications (Trade) Dose Ordered Sig/Reshma Start Time Stop Time Status Last Admin Dose Admin Ibuprofen (Motrin) 600 mg 1X ONCE 07/19/20 03:15 07/19/20 03:16 Allergies: Allergies: Allergies Coded Allergies Type Severity Reaction Last Updated Verified codeine Allergy Intermediate 06/04/20 Yes Physical Exam: PE: General: alert, no acute distress. Skin: warm, dry and intact. Head:: Normocephalic, atraumatic. Neck: Trachea midline. Eyes: EOMI, Normal conjunctiva, No drainage RESPIRATORY: No respiratory distress Back: Full range of motion. MUSCULOSKELETAL: Full range of motion of bilateral upper and lower extremities. GASTROINTESTINAL: Abdomen soft without rebound or guarding. NEUROLOGICAL: Alert and noted to person, place and time. No neurological deficits observed Psychiatric: Cooperative. Normal judgment EKG: EKG: [] Radiology/Procedures: Radiology/Procedures: [] Course & Med Decision Making: Course & Med Decision Making Pertinent Labs and Imaging studies reviewed. (See chart for details) [] Dragon Disclaimer: Dragon Disclaimer: This electronic medical record was generated, in whole or in part, using a voice recognition dictation system. Departure Departure Impression: Primary Impression: Back pain Additional Impression: Leg pain, posterior Disposition: 01 DC HOME SELF CARE/HOMELESS Condition: STABLE Patient Instructions: Back Pain, Adult, Musculoskeletal Pain EVER CORTEZ DO Jul 19, 2020 03:09
[2020-07-19] MEDS ORDERED: IBUPROFEN 200 MG TABLET. PO ONE (03:15)
== END 2020-07-19 03:32 | disposition home or self-care (01) ==
LOC: ER 02:43
DX: M54.5 Low back pain (principal); M79.604 Pain in right leg; M79.605 Pain in left leg; J45.909 Unspecified asthma, uncomplicated; F32.9 Major depressive disorder, single episode, unspecified; F17.200 Nicotine dependence, unspecified, uncomplicated; F10.10 Alcohol abuse, uncomplicated; G89.29 Other chronic pain; Z88.5 Allergy status to narcotic agent
CPT/HCPCS: 99283

== ENCOUNTER 2020-12-01 11:01 | Emergency (ER) | payer OTHER ==
[~2020-12-01] VITALS: Ht 172.7 cm; Wt 59.0 kg
[2020-12-01 11:07] VITALS: BP 111/73
--- NOTE | 2020-12-01 12:05 | RAD ---
EXAM: Left foot, 3 views. HISTORY: Pain. COMPARISON: None. FINDINGS: 3 views left foot are obtained. There are mildly displaced fractures involving the proximal second, third and fourth metatarsals. These appear to be subacute. There is no radiodense foreign micaela dy. IMPRESSION: Mildly displaced subacute appearing fractures involving the proximal second, third and fourth metatar sals. Electronically signed by: Leydi Adair MD (12/01/2020 12:02 PM) [id number]
--- NOTE | 2020-12-01 12:23 | PHYS DOC ---
Past Medical History Past Medical History: Asthma, Depression, Pneumonia Additional Past Medical Histor: DRUG ABUSE,"fibromyalgia" Past Surgical History: No Surgical History Smoking Status: Unknown if ever smoked Alcohol Use: None Drug Use: None, Other General Adult EDM: Chief Complaint: LOWER EXTREMITY SWELLING HPI: HPI: Patient is a 40 year old female who present to ER for evaluation of left foot and left leg pain. Patient claimed that she broke her left foot and left leg months ago, she was seen at [facility], she had a cast placed on her left lower extremity. Patient allegedly told me that they took the cast off because she no longer needed. Patient has been having pain since. Patient denies any chest pain, no abdominal pain, no nausea vomiting. Patient denies any cough or trouble breathing. Patient denies any history of blood clot disorder, denies any recent injury. Review of Systems: Review of Systems: Constitutional: Denies fever or chills. [] Eyes: Denies change in visual acuity. [] HENT: Denies nasal congestion or sore throat. [] Respiratory: Denies cough or shortness of breath. [] Cardiovascular: Denies chest pain or edema. [] GI: Denies abdominal pain, nausea, vomiting, bloody stools or diarrhea. [] : Denies dysuria. [] Musculoskeletal: Denies back pain, positive for left foot pain. Integument: Denies rash. [] Neurologic: Denies headache, focal weakness or sensory changes. [] Endocrine: Denies polyuria or polydipsia. [] Lymphatic: Denies swollen glands. [] Psychiatric: Denies depression or anxiety. [] Heart Score: C/O Chest Pain: N/A Risk Factors: Risk Factors: DM, Current or recent (<one month) smoker, HTN, HLP, family history of CAD, obesity. Risk Scores: Score 0 - 3: 2.5% MACE over next 6 weeks - Discharge Home Score 4 - 6: 20.3% MACE over next 6 weeks - Admit for Clinical Observation Score 7 - 10: 72.7% MACE over next 6 weeks - Early Invasive Strategies Allergies: Allergies: Allergies Coded Allergies Type Severity Reaction Last Updated Verified codeine Allergy Intermediate 06/04/20 Yes Physical Exam: PE: Constitutional: Well developed, well nourished, no acute distress, non-toxic appearance. [] HENT: Normocephalic, atraumatic, bilateral external ears normal, oropharynx moist, no oral exudates, nose normal. [] Eyes: PERRLA, EOMI, conjunctiva normal, no discharge. [] Neck: Normal range of motion, no tenderness, supple, no stridor. [] Cardiovascular:Heart rate regular rhythm, no murmur [] Lungs & Thorax: Bilateral breath sounds clear to auscultation [] Abdomen: Bowel sounds normal, soft, no tenderness, no masses, no pulsatile masses. [] Skin: Warm, dry, no erythema, no rash. [] Back: No tenderness, no CVA tenderness. [] Extremities: Left foot is tender to palpation, minimal swelling, no cyanosis, no clubbing, ROM intact, no edema. Left calf is nontender, no swelling. Neurologic: Alert and oriented X 3, normal motor function, normal sensory function, no focal deficits noted. [] Psychologic: Affect normal, judgement normal, mood normal. [] Current Patient Data: Vital Signs: Vital Signs Date Time Temp Pulse Resp B/P (MAP) Pulse Ox O2 Delivery O2 Flow Rate FiO2 12/01/20 11:07 98.7 80 16 111/73 (82) 98 Room Air 98.7 EKG: EKG: [] Radiology/Procedures: Radiology/Procedures: [][facility] [address] [place] [address] IMAGING REPORT Signed PATIENT: KENDY SPENCE ACCOUNT: [id number] : 1980 LOCATION: ER AGE: 40 SEX: F EXAM STATUS: REG ER ORD. PHYSICIAN: JUSTIN BURLESON DO REASON: left foot pain PROCEDURE: FOOT LEFT 3V EXAM: Left foot, 3 views. HISTORY: Pain. COMPARISON: None. FINDINGS: 3 views left foot are obtained. There are mildly displaced fractures involving the proximal second, third and fourth metatarsals. These appear to be subacute. There is no radiodense foreign body. IMPRESSION: Mildly displaced subacute appearing fractures involving the proximal second, third and fourth metatarsals. Electronically signed by: Leydi Taylor MD (12/01/2020 12:02 PM) [id number] DICTATED and SIGNED BY: LEYDI TAYLOR MD DATE: 12/01/20 [id number] [facility] [address] [place] [address] IMAGING REPORT Signed PATIENT: KENDY SPENCE ACCOUNT: [id number] : 1980 LOCATION: ER AGE: 40 SEX: F EXAM STATUS: REG ER ORD. PHYSICIAN: JUSTIN BURLESON DO REASON: left leg pain PROCEDURE: TIBIA FIBULA LEFT Left tibia and fibula 2 views. HISTORY: Left leg pain AP and lateral views were taken the left tibia and fibula. There is a subacute fracture of the distal fibula which has fairly mature callus formation consistent with partial interval healing. There is a fracture at the posterior malleolus with only a cortex width of displacement seen on the lateral view. A medial malleolus fracture is not identified. IMPRESSION: 1. Healing fracture distal fibula. 2. Fracture posterior malleolus. Electronically signed by: Haris Boyd MD (12/01/2020 1:23 PM) [id number] DICTATED and SIGNED BY: HARIS BOYD MD DATE: 12/01/20 [id number] 0 Course & Med Decision Making: Course & Med Decision Making Pertinent Labs and Imaging studies reviewed. (See chart for details) Patient is a 40-year-old female who present to ER due to pain on her left foot and left ankle area. Patient sustained a fracture of her left foot and ankle last month, patient was seen at [facility], patient claimed that they remove the cast because she does not need it anymore. Patient has been having pain since. X-ray show subacute fracture of the left foot and ankle area. A posterior short leg splint, Ortho-Glass material was applied to the left leg by RN. Patient will need to be followed with her orthopedic surgeon at for evaluation. Patient was given crutches and advised not to bear any weight on her left lower extremity until she see her orthopedic surgeon. Ron Disclaimer: Ron Disclaimer: This electronic medical record was generated, in whole or in part, using a voice recognition dictation system. Departure Departure Impression: Primary Impression: Fracture of metatarsal of left foot, closed Disposition: 01 HOME / SELF CARE / HOMELESS Condition: STABLE Referrals: UNKNOWN PCP NAME (PCP) Follow up wiht your orthopedic surgeon at ON THUR[facility]AY. Patient Instructions: Crutch Use, Foot Fracture Additional Instructions: Thank you for visiting our Emergency Department. We appreciate you trusting us with your care. If any additional problems come up don't hesitate to return to visit us. Please follow up with your primary care provider so they can plan additional care if needed and know about the problem that you had. If symptoms worsen come back to the Emergency Department. Any concerning symptoms that start such as chest pain, shortness of air, weakness or numbness on one side of the body, running high fevers or any other concerning symptoms return to the ER. USE CRUTCHES TO WALK. NONWEIGHT BEARING ON LEFT FOOT. PLEASE FOLLOW UP WITH YOUR ORTHOPEDIC SURGEON AT THURSDAY. Scripts Naproxen Sodium (ANAPROX DS) 550 Mg Tablet 1 TAB PO BID PRN for PAIN for 15 Days, #30 TAB 0 Refills Prov: JUSTIN BURLESON DO 12/01/20 JUSTIN BURLESON DO Dec 01, 2020 12:23
--- NOTE | 2020-12-01 13:25 | RAD ---
Left tibia and fibula 2 views. HISTORY: Left leg pain AP and lateral views were taken the left tibia and fibula. There is a subacute fracture of the distal fibula which has fairly mature callus formation consistent with partial interval healing. There is a fracture at the posterior malleolus with only a cortex width of displacement seen on the lateral vie w. A medial malleolus fracture is not identified. IMPRESSION: 1. Healing fracture distal fibula. 2. Fracture posterior malleolus. Electronically signed by: Haris Boyd MD (12/01/2020 1:23 PM) [id number]
[2020-12-01] MEDS ORDERED: NAPR-682 PO (14:13)
== END 2020-12-01 14:44 | disposition home or self-care (01) ==
LOC: ER 11:01
DX: S92.322A Displaced fracture of second metatarsal bone, left foot, initial encounter for closed fracture (principal); S92.332A Displaced fracture of third metatarsal bone, left foot, initial encounter for closed fracture; S92.342A Displaced fracture of fourth metatarsal bone, left foot, initial encounter for closed fracture; J45.909 Unspecified asthma, uncomplicated; Z88.5 Allergy status to narcotic agent; X58.XXXA Exposure to other specified factors, initial encounter; Y93.89 Activity, other specified; Y92.89 Other specified places as the place of occurrence of the external cause; Y99.8 Other external cause status
CPT/HCPCS: 29515; 73590; 73630; 99284